=== PATIENT | female | born 1940 | race Hispanic/Latino ===

== ENCOUNTER 2018-02-20 12:49 | Emergency (ER) | payer OTHER ==
[2018-02-20] MEDS ORDERED: ONDANSETRON 4 MG/2 ML VIAL ONE ×2 (14:08→17:20)
[2018-02-20] MEDS ORDERED: MORPHINE 4 MG/ML SYR ONE ×2 (14:08→15:49)
[2018-02-20] MEDS ORDERED: CEFTRIAXONE/SWI 1gm 1 GM/10 ML SYR ONE (14:08)
[2018-02-20] MEDS ORDERED: NA CHLORIDE 0.9% 1,000 ML ONE (14:08)
[2018-02-20 14:10] LABS: Absolute Lymphocytes (CBC) 1.2 K/uL (0.7-4.9); Absolute Monocytes 0.5 K/uL (0.1-1.3); Absolute Neutrophil 5.3 K/uL (1.8-8.0); Basophils % 1.1 % (0-1.3); Eosinophils % 1.5 % (0-4.4); Hematocrit 33.8 % (36.0-45.0); Lymphocytes % 16.7 % (15.3-44.8); MCH 30.9 pg (27.0-35.0); MCV 91.3 fL (80-100); MPV 8.8 fL (7.6-11.3); Monocytes % 6.4 % (3.3-12.3); RBC Red Blood Cell Count 3.71 M/uL (3.86-4.86)
[2018-02-20 14:54] LABS: Albumin 3.8 g/dL (3.4-5.0); Bilirubin Direct 0.1 mg/dL (0-0.2); Bilirubin Total 0.3 mg/dL (0.2-1.0); Potassium 5.1 mmol/L (3.5-5.1); Protein, Total 7.5 g/dL (6.4-8.2)
[2018-02-20 15:54] LABS: Urine Bacteria <20 /HPF (<20); Urine Culture Reflex Order NOT NEEDED; Urine RBC <5 /HPF (NONE SEEN)
--- NOTE | 2018-02-20 16:17 | RAD REPORT ---
EXAM DESCRIPTION: CT - Abdomen Pelvis W Contrast - 02/20/2018 4:01 pm CLINICAL HISTORY: Abdominal pain. Right flank pain with urinary frequency COMPARISON: None. TECHNIQUE: Computed axial tomography of the abdomen and pelvis was obtained. 100 cc Isovue-300 is ad ministered intravenously. Oral contrast was given. All CT scans are performed using dose optimization technique as appropriate and may include automated exposure control or mA/KV adjustment according to patient size. FINDINGS: Elevation of the right hemidiaphragm is present. Calcified granuloma within the right lower lobe is n oted. The liver, spleen, pancreas, right adrenal and left kidney appear unremarkable. A 25 millimeter left renal cyst is present. 13 millimeter left adrenal nodule seen An adnexal mass is not noted. Tiny umbilical hernia is present. The appendix is normal caliber. There is no evidence of diverticulitis A small hiatal hernia is present. Coronary arterial calcifications are noted IMPRESSION: Elevation right hemidiaphragm Nonspecific 13 millimeter left adrenal nodule may represent an adenoma or less likely a metastasis. A nonemergent MRI is recommended to rule in an adenoma adenoma.
[2018-02-20 17:05] LABS: Urine Blood NEGATIVE (NEG); Urine Glucose NEGATIVE (NEG); Urine Protein 2+ (NEG); Urine Specific Gravity 1.015 (1.005-1.030)
--- NOTE | 2018-02-20 17:05 | EDPHYS ---
Physician Documentation [facility] Name: Jennifer Jules Age: 77 yrs Sex: Female : 1940 Arrival Date: 02/20/2018 Time: 12:51 Bed 26 Private MD: ED Physician Salty Thompson HPI: 02/20 14:13 This 77 yrs old Female presents to ER via Wheelchair with complaints of Flank ma2 Pain. 14:13 The patient complains of pain in the right mid back and right low back. Onset: The ma2 symptoms/episode began/occurred suddenly, gradually, 1 day(s) ago. Associated signs and symptoms: Pertinent negatives: diarrhea, dysuria, urinary frequency, headache, nausea, pain radiating to the lower extremities. Severity of pain: At its worst the pain was severe in the emergency department the pain is unchanged. The patient has not experienced similar symptoms in the past. Historical: - Allergies: 13:10 No Known Allergies; aj1 - Home Meds: 13:10 amlodipine 5 mg tab 1 tab once daily [Active]; lisinopril 20 mg Oral tab 1 tab once aj1 daily [Active]; carvedilol 6.25 mg oral tab 1 tab 2 times per day [Active]; metformin 500 mg Oral tr24 1 tab once daily [Active]; - PMHx: 13:10 Hypertension; Diabetes - NIDDM; aj1 - Immunization history:: Flu vaccine is not up to date. - Social history:: Smoking status: Patient/guardian denies using tobacco, Patient/guardian denies using alcohol, street drugs, The patient lives with family. - Ebola Screening: : Patient denies travel to an Ebola-affected area in the 21 days before illness onset. - Family history:: not pertinent. ROS: 14:13 Constitutional: Negative for fever, chills, and weight loss. ma2 14:13 Abdomen/GI: Positive for Negative for nausea and vomiting, vomiting, constipation, abdominal distension, rectal pain, flatulence. 14:13 : Positive for flank pain, Negative for injury or acute deformity, urinary symptoms, flank pain, difficulty urinating, foul smelling urine, vaginal itching, menstrual abnormality. 14:13 All other systems are negative. Exam: 14:13 Constitutional: This is a well developed, well nourished patient who is awake, alert, ma2 and in no acute distress. Head/Face: Normocephalic, atraumatic. Chest/axilla: Normal chest wall appearance and motion. Nontender with no deformity. No lesions are appreciated. Cardiovascular: Regular rate and rhythm with a normal S1 and S2. No gallops, murmurs, or rubs. Normal PMI, no JVD. No pulse deficits. Respiratory: Lungs have equal breath sounds bilaterally, clear to auscultation and percussion. No rales, rhonchi or wheezes noted. No increased work of breathing, no retractions or nasal flaring. Abdomen/GI: Soft, non-tender, with normal bowel sounds. No distension or tympany. No guarding or rebound. No evidence of tenderness throughout. 14:13 : CVA tenderness, on the right. 14:13 MS/ Extremity: Pulses equal, no cyanosis. Neurovascular intact. Full, normal range ma2 of motion. Neuro: Awake and alert, GCS 15, oriented to person, place, time, and situation. Cranial nerves II-XII grossly intact. Motor strength 5/5 in all extremities. Sensory grossly intact. Cerebellar exam normal. Normal gait. Vital Signs: 13:10 BP 157 / 90; Pulse 75; Resp 18; Temp 97.7; Pulse Ox 97% on R/A; Weight 65.77 kg (R); aj1 Height 4 ft. 11 in. (149.86 cm) (R); Pain 10/10; 13:30 BP 173 / 73 LA Sitting (auto/reg); Pulse 83; Resp 19; Pulse Ox 97% on R/A; Pain 10/10; jp3 14:54 BP 125 / 49; Pulse 72; Pulse Ox 98% on R/A; rv 13:10 Body Mass Index 29.29 (65.77 kg, 149.86 cm) aj1 MDM: 13:20 Patient medically screened. ma2 14:13 Differential diagnosis: nephrolithiasis, pyelonephritis, UTI, diverticulitis. ma2 17:02 Data reviewed: vital signs, nurses notes, EMS record. Counseling: I had a detailed ma2 discussion with the patient and/or guardian regarding: the historical points, exam findings, and any diagnostic results supporting the discharge/admit diagnosis, the presence of at least one elevated blood pressure reading (>120/80) during this emergency department visit, lab results. Response to treatment: the patient's symptoms have markedly improved after treatment. ED course: imaging are unremarkable lab non critical, ct showing adrenal adenoma she will need non emergent MRI for further eval . 02/20 13:40 Order name: Basic Metabolic Panel; Complete Time: 15:17 ma2 02/20 13:40 Order name: CBC with Diff; Complete Time: 15:17 ma2 02/20 13:40 Order name: Creatinine for Radiology; Complete Time: 15:17 ma2 02/20 13:40 Order name: Hepatic Function; Complete Time: 15:17 ma2 02/20 13:40 Order name: Lipase; Complete Time: 15:17 ma2 02/20 13:40 Order name: Urine Microscopic Only; Complete Time: 16:53 ma2 02/20 13:40 Order name: IV Saline Lock; Complete Time: 14:00 ma2 02/20 13:40 Order name: Labs collected and sent; Complete Time: 14:00 ma2 02/20 13:40 Order name: CT Abd/Pelvis - W/Contrast; Complete Time: 16:53 ma2 02/20 15:11 Order name: Urine Dipstick--Ancillary (enter results) bd 02/20 13:40 Order name: Urine Dipstick-Ancillary (obtain specimen); Complete Time: 14:55 ma2 Administered Medications: 14:00 Drug: Zofran 4 mg Route: IVP; Site: right antecubital; ss 17:33 Follow up: Response: No adverse reaction ss 14:08 Drug: morphine 4 mg Route: IVP; Site: right antecubital; ss 17:33 Follow up: Response: No adverse reaction ss 14:13 Drug: NS 0.9% 1000 ml Route: IV; Rate: 1 bolus; Site: right antecubital; ed1 14:13 Drug: Rocephin 1 grams Route: IV; Rate: calculated rate; Site: right antecubital; ed1 17:33 Follow up: IV Status: Completed infusion ss Disposition: 02/20/18 17:04 Discharged to Home. Impression: Low back pain. - Condition is Stable. - Discharge Instructions: Musculoskeletal Pain. - Prescriptions for Tylenol- Codeine #3 300-30 mg Oral Tablet - take 2 tablet by ORAL route every 6 hours As needed; 30 tablet. - Medication Reconciliation Form, Thank You Letter, Antibiotic Education, Prescription Opioid Use form. - Follow up: Private Physician; When: Tomorrow; Reason: Continuance of care. - Problem is new. - Symptoms have improved. - Notes: on CT scan, you have left adrenal mass, please follow up with you primary care doctor for further evaluation and possible MRI Signatures: Dispatcher [employer] EDNH Corina Vyas RN RN aj1 Bita Ordonez RN RN Mackenzie Baez LVN DIRECTOR OF PERSONNEL ed1 Salty Thompson MD MD ma2 Corrections: (The following items were deleted from the chart) 17:34 17:04 02/20/2018 17:04 Discharged to Home. Impression: Low back pain. Condition is ss Stable. Forms are Medication Reconciliation Form, Thank You Letter, Antibiotic Education, Prescription Opioid Use. Follow up: Private Physician; When: Tomorrow; Reason: Continuance of care. Problem is new. Symptoms have improved. ma2
--- NOTE | 2018-02-20 17:05 | ER ---
Nurse's Notes [facility] Name: Jennifer Jules Age: 77 yrs Sex: Female : 1940 Arrival Date: 02/20/2018 Time: 12:51 Bed 26 Private MD: Diagnosis: Low back pain Presentation: 02/20 13:07 Presenting complaint: Child states: Right flank pain since this morning. Patient aj1 reports urinary frequency, denies dysuria. Patient denies fever. Denies N/V/D. Transition of care: patient was not received from another setting of care. Onset of symptoms was February 20, 2018. Risk Assessment: Do you want to hurt yourself or someone else? Patient reports no desire to harm self or others. Initial Sepsis Screen: Does the patient meet any 2 criteria? No. Patient's initial sepsis screen is negative. Does the patient have a suspected source of infection? Yes: Acute abdominal pain. Care prior to arrival: None. 13:07 Method Of Arrival: Wheelchair aj1 13:07 Acuity: ALFONSO 3 aj1 Triage Assessment: 13:10 General: Appears in no apparent distress. uncomfortable, Behavior is calm, cooperative, aj1 appropriate for age. Pain: Complains of pain in posterior aspect of right lateral abdomen and anterior aspect of right lateral abdomen Pain currently is 10 out of 10 on a pain scale. Neuro: Level of Consciousness is awake, alert, obeys commands. Cardiovascular: Patient's skin is warm and dry. Respiratory: Airway is patent Respiratory effort is even, unlabored, Respiratory pattern is regular, symmetrical. Historical: - Allergies: 13:10 No Known Allergies; aj1 - Home Meds: 13:10 amlodipine 5 mg tab 1 tab once daily [Active]; lisinopril 20 mg Oral tab 1 tab once aj1 daily [Active]; carvedilol 6.25 mg oral tab 1 tab 2 times per day [Active]; metformin 500 mg Oral tr24 1 tab once daily [Active]; - PMHx: 13:10 Hypertension; Diabetes - NIDDM; aj1 - Immunization history:: Flu vaccine is not up to date. - Social history:: Smoking status: Patient/guardian denies using tobacco, Patient/guardian denies using alcohol, street drugs, The patient lives with family. - Ebola Screening: : Patient denies travel to an Ebola-affected area in the 21 days before illness onset. - Family history:: not pertinent. Screenin:12 Abuse screen: Denies threats or abuse. Denies injuries from another. Nutritional ed1 screening: No deficits noted. Tuberculosis screening: No symptoms or risk factors identified. Fall Risk None identified. Assessment: 13:12 General: Appears uncomfortable, Behavior is restless. Pain: Complains of pain in low ed1 back area Pain does not radiate. Pain currently is 10 out of 10 on a pain scale. Quality of pain is described as sharp, stabbing, Pain began 2 hours ago. Is continuous. Neuro: Level of Consciousness is awake, alert, obeys commands, Oriented to person, place, time, situation. Cardiovascular: Denies chest pain, Heart tones S1 S2 present. Respiratory: Airway is patent Respiratory effort is even, unlabored, Respiratory pattern is regular, symmetrical, Breath sounds are clear bilaterally. GI: Abdomen is non-distended, Bowel sounds present X 4 quads. Abd is soft and non tender X 4 quads. Reports nausea. : No signs and/or symptoms were reported regarding the genitourinary system. EENT: No signs and/or symptoms were reported regarding the EENT system. Derm: Skin is intact, is healthy with good turgor, Skin is dry, Skin is normal, Skin temperature is warm. Musculoskeletal: Circulation, motion, and sensation intact. 13:16 General: The previous assessment is accurate, call light remains within reach. . ss 14:53 Reassessment: RECEIVED PATIENT FROM [facility]. AWAKE AND AMBULATORY. AWAITING CT SCAN. rv Vital Signs: 13:10 BP 157 / 90; Pulse 75; Resp 18; Temp 97.7; Pulse Ox 97% on R/A; Weight 65.77 kg (R); aj1 Height 4 ft. 11 in. (149.86 cm) (R); Pain 10/10; 13:30 BP 173 / 73 LA Sitting (auto/reg); Pulse 83; Resp 19; Pulse Ox 97% on R/A; Pain 10/10; jp3 14:54 BP 125 / 49; Pulse 72; Pulse Ox 98% on R/A; rv 13:10 Body Mass Index 29.29 (65.77 kg, 149.86 cm) aj1 ED Course: 12:51 Patient arrived in ED. rg4 13:09 Triage completed. aj1 13:10 Arm band placed on Patient placed in an exam room. aj1 13:18 Salty Thompson MD is Attending Physician. ma2 13:34 Bed in low position. Call light in reach. Side rails up X 1. Warm blanket given. Pillow jp3 given. Pulse ox on. NIBP on. 13:49 Mackenzie Baez LVN is Primary Nurse. ed1 14:08 Initial lab(s) drawn, by me, sent to lab. Inserted saline lock: 20 gauge in right ed1 antecubital area, using aseptic technique. Blood collected. 15:[address] ri 16:02 CT Abd/Pelvis - W/Contrast In Process Unspecified. EDHI 16:02 CT completed. Patient tolerated procedure well. Patient moved back from [place]. ri 17:33 No provider procedures requiring assistance completed. IV discontinued, bleeding ss controlled, No redness/swelling at site. Pressure dressing applied. Administered Medications: 14:00 Drug: Zofran 4 mg Route: IVP; Site: right antecubital; ss 17:33 Follow up: Response: No adverse reaction ss 14:08 Drug: morphine 4 mg Route: IVP; Site: right antecubital; ss 17:33 Follow up: Response: No adverse reaction ss 14:13 Drug: NS 0.9% 1000 ml Route: IV; Rate: 1 bolus; Site: right antecubital; ed1 14:13 Drug: Rocephin 1 grams Route: IV; Rate: calculated rate; Site: right antecubital; ed1 17:33 Follow up: IV Status: Completed infusion ss Outcome: 17:04 Discharge ordered by . ma2 17:34 Patient left the ED. ss 17:34 Discharged to home via wheelchair. ss 17:34 Condition: good 17:34 Discharge instructions given to patient, family, Instructed on discharge instructions, follow up and referral plans. medication usage, Demonstrated understanding of instructions, follow-up care, medications, Prescriptions given X 1. Signatures: Dispatcher [employer] EDMS Corina Vyas RN RN aj1 Bita Ordonez RN RN ss Mackenzie Baez LVN TRANSITIONAL LIVING SPECIALIST ed1 Richelle Jimenez rg4 Zander Page ri Salty Thompson MD MD ma2 Keith Burns RN RN rv James Ashford jp3
== END 2018-02-20 17:34 | disposition home or self-care (01) ==
LOC: ER 12:49
DX: M54.5 Low back pain (principal); I10 Essential (primary) hypertension; E11.9 Type 2 diabetes mellitus without complications
CPT/HCPCS: 36415; 74177; 80048; 80076; 83690; 85025; J0696; J2405 ×2; J7030; Q9967; 81003; 81015; 96365; 96366; 96375; 99284